=== PATIENT | female | born 2000 | race Two or more races ===

== ENCOUNTER 2019-04-10 22:44 | Outpatient (CLI) | payer OTHER ==
[2019-04-10 23:47] LABS: APPEARANCE,URINE CLOUDY; BILIRUBIN,URINE NEGATIVE (NEGATIVE); COLOR,URINE YELLOW; GLUCOSE, URINE NEGATIVE (NEGATIVE); KETONES,URINE NEGATIVE (NEGATIVE); LEUKOCYTE ESTERASE,URINE LARGE (NEGATIVE); NITRITE,URINE NEGATIVE (NEGATIVE); PROTEIN,URINE NEGATIVE (NEGATIVE)
[2019-04-11 00:11] LABS: URINE AMPHETAMINES SCREEN NEGATIVE; URINE BARBITURATES SCREEN NEGATIVE; URINE BENZODIAZEPINES SCREEN NEGATIVE; URINE COCAINE SCREEN NEGATIVE; URINE MARIJUANA (THC) SCREEN NEGATIVE; URINE METHADONE SCREEN NEGATIVE; URINE PHENCYCLIDINE SCREEN NEGATIVE
[2019-04-11] MEDS ORDERED: HYDROXYZINE PAMOATE 50 MG CAPSULE ONE (00:40)
--- NOTE | 2019-04-11 00:53 | Non Stress Test Report ---
Non Stress Test Datetime Report Generated by CPN: 04/11/2019 00:53 DEMOGRAPHIC EGA NST: 37.2 INDICATION Indication for Study: Ordered by Provider MONITORING Monitor Explained: Monitor Explained; Test Explained; Patient Verbalized Understanding Time on Monitor: 04/11/2019 23:07 Time off Monitor: 04/11/2019 00:41 NST Duration: -1346 NST INTERVENTIONS NST Interventions: PO Hydration Physician Notified NST: Dr. Jose BABY A: [id number] BABY A Contraction Frequency : 2-6 FHR Baseline : 115 Accelerations : 15X15 Decelerations : None Variability : Moderate 6-25bpm NST Review: Meets Criteria for Reactive NST NST Review and Verified By : Mandy Tracey RN NST Results: Reactive NST REPORT Report Trigger: Send Report
[2019-04-11] MEDS ORDERED: HYDROXYZINE PAMOATE 50 MG CAPSULE PO ONE (01:00)
== END 2019-04-11 00:55 | disposition home or self-care (01) ==
LOC: LC 22:44
PROVIDERS: ATTEND Obstetrics & Gynecology
PROC: 4A1HXCZ Monitoring of Products of Conception, Cardiac Rate, External Approach (ICD-10-PCS; principal; 2019-04-10)
DX: O47.1 False labor at or after 37 completed weeks of gestation (principal); Z3A.37 37 weeks gestation of pregnancy
CPT/HCPCS: 59025; 80307; 81005

== ENCOUNTER 2019-04-23 13:22 | Outpatient (CLI) | payer OTHER ==
[2019-04-23 14:10] LABS: APPEARANCE,URINE SLIGHTLY-CLOUDY; BILIRUBIN,URINE NEGATIVE (NEGATIVE); COLOR,URINE YELLOW; GLUCOSE, URINE NEGATIVE (NEGATIVE); KETONES,URINE NEGATIVE (NEGATIVE); LEUKOCYTE ESTERASE,URINE MODERATE (NEGATIVE); NITRITE,URINE NEGATIVE (NEGATIVE); PROTEIN,URINE NEGATIVE (NEGATIVE); URINE SPECIFIC GRAVITY 1.012
[2019-04-23 14:30] LABS: URINE AMPHETAMINES SCREEN NEGATIVE; URINE BARBITURATES SCREEN NEGATIVE; URINE BENZODIAZEPINES SCREEN NEGATIVE; URINE COCAINE SCREEN NEGATIVE; URINE MARIJUANA (THC) SCREEN NEGATIVE; URINE METHADONE SCREEN NEGATIVE; URINE PHENCYCLIDINE SCREEN NEGATIVE
--- NOTE | 2019-04-23 15:20 | Non Stress Test Report ---
Non Stress Test Datetime Report Generated by CPN: 04/23/2019 15:20 DEMOGRAPHIC EGA NST: 39.0 INDICATION Indication for Study: Other Indication for Study (NST) Other: lc MONITORING Monitor Explained: Monitor Explained; Test Explained; Patient Verbalized Understanding Time on Monitor: 04/23/2019 13:40 Time off Monitor: 04/23/2019 14:35 NST Duration: 55 NST INTERVENTIONS NST Interventions: PO Hydration; Reposition Patient Physician Notified NST: N Alanis COAL DELIVERER A: [id number] BABY A Movement : Present Contraction Frequency : irreg FHR Baseline : 140 Accelerations : 15X15 Decelerations : None Variability : Moderate 6-25bpm NST Review: Meets Criteria for Reactive NST NST Review and Verified By : ANAMIKA JAY RN NST Results: Reactive NST REPORT Report Trigger: Send Report
== END 2019-04-23 15:22 | disposition home or self-care (01) ==
LOC: LC 13:22
PROVIDERS: ATTEND Obstetrics & Gynecology
DX: O47.1 False labor at or after 37 completed weeks of gestation (principal); Z3A.39 39 weeks gestation of pregnancy
CPT/HCPCS: 59025; 80307; 81005; 84112

== ENCOUNTER 2019-04-23 17:44 | Inpatient (IN) | payer OTHER ==
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
[2019-04-23] MEDS ORDERED: RINGERS SOLUTION,LACTATED 1,000 ML IV PRN (17:52)
[2019-04-23] MEDS ORDERED: PROMETHAZINE HCL INJ 25 MG/1 ML VIAL IV ONE (17:53)
[2019-04-23] MEDS ORDERED: NALBUPHINE HCL INJ 10 MG/1 ML AMPULE INJ ONE (17:53)
[2019-04-23] MEDS ORDERED: PROMETHAZINE HCL INJ 25 MG/1 ML VIAL ONE (18:08)
[2019-04-23] MEDS ORDERED: NALBUPHINE HCL INJ 10 MG/1 ML AMPULE ONE (18:08)
[2019-04-23] MEDS ORDERED: OXYTOCIN/NORMAL SALINE 20 UNIT/1,000 ML RTUINJ ONE (19:27)
[2019-04-23] MEDS ORDERED: MISOPROSTOL 0.2 MG TABLET ONE (19:27)
[2019-04-23] MEDS ORDERED: LIDOCAINE 1% INJ-PF (10 MG/ML) 30 ML SDV ONE (19:27)
[2019-04-23 19:28] LABS: HEMATOCRIT 32.8 % (36.0-47.0); HEMOGLOBIN 10.3 g/dL (12.0-15.5); MEAN CORPUSCULAR HGB CONC 31.5 g/dL (32.0-36.0); MEAN CORPUSCULAR VOLUME 71 fl (80-97); PLATELET COUNT 268 10^3/uL (150-450); RED BLOOD COUNT 4.63 10^6/uL (3.72-5.28); WHITE BLOOD COUNT 16.9 10^3/uL (4.0-10.5)
[2019-04-23 19:49] LABS: MEAN CORPUSCULAR HEMOGLOBIN 22.4 pg (27.0-33.4); RED CELL DISTRIBUTION WIDTH 21.4 % (11.5-14.0)
[2019-04-23] MEDS ORDERED: AMPICILLIN SOD/SULBACTAM 3 GM VIAL ONE (23:39)
[2019-04-23] MEDS ORDERED: ACETAMINOPHEN 325 MG TABLET ONE (23:39)
[2019-04-23] MEDS ORDERED: AMPICILLIN SOD/SULBACTAM 3 GM VIAL IV SCH (23:45)
[2019-04-23] MEDS ORDERED: OXYTOCIN/NORMAL SALINE 20 UNIT/1,000 ML RTUINJ IV PRN (23:55)
[2019-04-23] MEDS ORDERED: PROMETHAZINE HCL 25 MG SUPP.RECT PR PRN (23:55)
[2019-04-23] MEDS ORDERED: ACETAMINOPHEN 650 MG SUPP.RECT PR PRN (23:55)
[2019-04-23] MEDS ORDERED: ACETAMINOPHEN WITH CODEINE #3 TABLET PO PRN ×2 (23:55)
[2019-04-23] MEDS ORDERED: GLYCERIN/WITCH HAZEL LEAF 1 EACH MED..WIPE TP PRN (23:55)
[2019-04-23] MEDS ORDERED: ZOLPIDEM TARTRATE 5 MG TABLET PO PRN (23:55)
[2019-04-23] MEDS ORDERED: PROMETHAZINE HCL 25 MG TABLET PO PRN (23:55)
[2019-04-23] MEDS ORDERED: PROMETHAZINE HCL INJ 25 MG/1 ML VIAL IV PRN (23:55)
[2019-04-23] MEDS ORDERED: DIPH/PERTUSS(ACELL)/TETANUS VAC/PF 0.5 ML SYR (>=10YO) IM PRN (23:55)
[2019-04-23] MEDS ORDERED: DIBUCAINE 1% OINTMENT 56 GM TP PRN (23:55)
[2019-04-23] MEDS ORDERED: NA PHOS,M-B/NA PHOS,DI-BA (ADULT) 133 ML ENEMA PR PRN (23:55)
[2019-04-23] MEDS ORDERED: PSEUDOEPHEDRINE HCL 30 MG TABLET PO PRN (23:55)
[2019-04-23] MEDS ORDERED: BENZOCAINE/MENTHOL AEROSOL SPRAY 56 ML TOP PRN (23:55)
[2019-04-23] MEDS ORDERED: MAGNESIUM HYDROXIDE SUSP 30 ML UDCUP PO PRN (23:55)
[2019-04-23] MEDS ORDERED: MEASLES,MUMPS&RUBELLA VACC/PF 0.5 ML VIAL SUBCUT PRN (23:55)
[2019-04-23] MEDS ORDERED: DIPHENHYDRAMINE HCL 25 MG CAPSULE PO PRN (23:55)
[2019-04-24] MEDS ORDERED: ACETAMINOPHEN 325 MG TABLET PO ONE (00:10)
[2019-04-24] MEDS ORDERED: AMPICILLIN SOD/SULBACTAM 3 GM VIAL IV ONE (00:10)
[2019-04-24] MEDS ORDERED: IBUPROFEN 800 MG TABLET ONE (01:04)
--- NOTE | 2019-04-24 01:39 | Delivery Summary ---
Del Sum A-C Datetime Report Generated by CPN: 04/24/2019 01:38 DELIVERY PERSONNEL DELIVERY PERSONNEL: [id number] Delivery Doctor:: Columba Garcia MD Labor and Delivery Nurse:: Darlene Tracey RNmetal fabrication supervisor Nurse:: KATHARINA Neri Well Driller/THERMODYNAMICIST: Eliza Mcfadden, ST MATERNAL INFORMATION Delivery Anesthesia: None Medications After Delivery: Cytotec 1000mcg Per Rectum/Vagina Estimated Blood Loss (ml): 400 Delivery QBL: 150 Maternal Complications: None Provider Comments: prolonged second stage of labor. no epidural, several attempts with kiwi to facilitate delivery due to maternal exhaustion were not successful due to inability to get adequate seal due to thick hair. LABOR SUMMARY EDC: 04/30/2019 00:00 No. Babies in Womb: 1 Attempted: No Labor Anesthesia: None LABOR INFORMATION Reason for Induction: Not Applicable Onset of Labor: 04/23/2019 17:30 Complete Dilatation: 04/23/2019 19:39 Oxytocin: N/A Group B Beta Strep: negative Antibiotics # of Doses: 0 Antibiotics Time of Last Dose: N/A Name of Antibiotic Given: N/A Steroids Given: None Reason Steroids Not Administered: Not Applicable MEMBRANES Membranes Rupture Method: Artificial Rupture of Membranes: 04/23/2019 19:39 Length of Rupture (hr): 27.90 Amniotic Fluid Color: Clear Amniotic Fluid Amount: Moderate Amniotic Fluid Odor: Normal STAGES OF LABOR Stage 1 hr: 2 Stage 1 min: 9 Stage 2 hr: 27 Stage 2 min: 54 Stage 3 hr: 0 Stage 3 min: 2 Total Time in Labor hr: 30 Total Time in Labor min: 5 VAGINAL DELIVERY Episiotomy: None Laceration #1: Vaginal Laceration Extension #1: First Degree Laceration Repair: Not Applicable Sponge Count Correct: Yes Sharps Count Correct: Yes CSECTION DELIVERY Primary Indication: N/A Secondary Indication: N/A CSection Incidence: N/A Labor: N/A Elective: N/A CSection Incision: N/A BABY A INFORMATION Infant Delivery Date/Time: 04/24/2019 23:33 Method of Delivery: Vaginal Born in Route : No : N/A Forceps: N/A Vacuum Extraction: Failed Shoulder Dystocia : No ASSISTED DELIVERY BABY A Indication for Assisted Delivery: FHT with prolonged second stage Catheter Prior to Procedure: Yes Station Vacuum/Forcep Apply: +2 Position Vacuum/Forcep Apply: Left Occipital Anterior Vacuum Number of Pulls: 3 Vacuum Number of PopOffs: 3 Vacuum Maximum Pressure Obtained: 500 Reduce Pressure btwn Ctx: Yes Vacuum Behavioral Services Tech: kiwi PRESENTATION/POSITION BABY A Presentation: Cephalic Cephalic Presentation: Vertex Vertex Position: Left Occipital Anterior Breech Presentation: N/A PLACENTA INFORMATION BABY A Placenta Delivery Time : 04/24/2019 23:35 Placenta Method of Delivery: Spontaneous Placenta Status: Delivered SCORES BABY A Heart Rate 1 min: >100 bpm Resp Effort 1 min: Slow, Irregular Reflex Irritability 1 min: [place] Muscle Tone 1 min: Some Flexion of Extremities Color 1 min: Body [place], Extremities Blue Resuscitation Effort 1 min: Tactile Stimulation SCORE 1 MIN: 6 Heart Rate 5 min: >100 bpm Resp Effort 5 min: Slow, Irregular Reflex Irritability 5 min: [place] Muscle Tone 5 min: Some Flexion of Extremities Color 5 min: Completely [place] Resuscitation Effort 5 min: Tactile Stimulation SCORE 5 MIN: 7 INFANT INFORMATION BABY A Gestational Age at Delivery: 39.0 Gestational Status: Full Term- 39- 40.6 Weeks Infant Outcome : Liveborn Condition : Stable Sex: Female IDENTIFICATION BABY A Verification Date/Time: 04/24/2019 00:09 ID Band Number: [id number] Mother's Name Verified: Yes Infant RN Verifying : ERajni Zhoukatya RN/ Al Ortega RN WEIGHT/LENGTH BABY A Infant Birthweight (gm): 3486 Weight (lb): 7 Infant Weight (oz): 11 Length (in): 20.50 Length (cm): 52.07 CORD INFORMATION BABY A No. Cord Vessels: 3 Nuchal Cord : N/A Cord Blood Taken: Yes-For Eval (Mom's Blood Type - or O+) Suction: Mouth; Nose BABY B INFORMATION : N/A SIGNATURES Signature: with User ID: [email or web address]
[2019-04-24] MEDS: FAMOTIDINE 20 MG TABLET PO SCH ×3 (02:17→21:15)
[2019-04-24] MEDS: IBUPROFEN 800 MG TABLET PO SCH ×3 (06:19→21:15)
[2019-04-24 06:58] LABS: HEMATOCRIT 27.7 % (36.0-47.0); HEMOGLOBIN 8.8 g/dL (12.0-15.5); MEAN CORPUSCULAR HEMOGLOBIN 22.5 pg (27.0-33.4); MEAN CORPUSCULAR HGB CONC 31.9 g/dL (32.0-36.0); MEAN CORPUSCULAR VOLUME 71 fl (80-97); PLATELET COUNT 244 10^3/uL (150-450); RED BLOOD COUNT 3.92 10^6/uL (3.72-5.28); RED CELL DISTRIBUTION WIDTH 21.8 % (11.5-14.0); WHITE BLOOD COUNT 24.1 10^3/uL (4.0-10.5)
[2019-04-24] MEDS: DOCUSATE SODIUM 100 MG CAPSULE PO SCH ×2 (09:44→17:28)
[2019-04-24] MEDS: FERROUS SULFATE 325 MG TABLET PO SCH ×2 (09:44→17:28)
[2019-04-24] MEDS: PRENATAL VITAMIN W DHA CAPSULE PO SCH (09:44)
[2019-04-24] MEDS: SENNOSIDES/DOCUSATE 8.6-50 MG 1 EACH TABLET PO SCH (09:44)
--- NOTE | 2019-04-24 12:05 | PDOC PROGRESS REPORT ---
Subjective-OB Progress Note for:: 04/24/19 Subjective: Doing well, no c/o, feeling better today, voiding, eating well, afebrile Physical Exam (OB) Vital Signs: Temp Pulse Resp BP Pulse Ox 98.8 F 64 16 110/55 L 97 04/24/19 07:33 04/24/19 07:33 04/24/19 07:33 04/24/19 07:33 04/24/19 07:33 Intake & Output 04/23/19 04/24/19 04/25/19 06:59 06:59 06:59 Intake Total 1000 Balance 1000 - PIH/Pre-Eclampsia Clonus: Negative Headache: Absent Epigastric Pain: No Visual Changes: No - Lochia Lochia Amount: Scant < 10 ml Lochia Color: Rubra/Red - Abdomen Description: Soft, Flat Hernia Present: No Fundal Description: Firm, Midline Fundal Height: u/u - u/2 Objective-Diagnostic Laboratory: 04/24/19 06:26 04/23/19 04/23/19 04/24/19 19:01 19:01 06:26 WBC 16.9 H 24.1 H RBC 4.63 3.92 Hgb 10.3 L 8.8 L Hct 32.8 L 27.7 L MCV 71 L 71 L MCH 22.4 L 22.5 L MCHC 31.5 L 31.9 L RDW 21.4 H 21.8 H Plt Count 268 244 Blood Type O POSITIVE Antibody Screen NEGATIVE Assessment and Plan(PN) - Assessment and Plan (1) Vaginal laceration Qualifiers: Perineal laceration degree: first degree Is this a current diagnosis for this admission?: Yes (2) Prolonged second stage of labor Is this a current diagnosis for this admission?: Yes (3) Vacuum-assisted vaginal delivery Is this a current diagnosis for this admission?: Yes - Time Spent with Patient Time with patient: Less than 15 minutes Medications reviewed and adjusted accordingly: Yes - Disposition Anticipated Discharge: Home Within: within 24 hours
[2019-04-24] MEDS ORDERED: ACETAMINOPHEN 325 MG TABLET ONE (18:46)
[2019-04-24] MEDS ORDERED: ACETAMINOPHEN 325 MG TABLET PO PRN (18:47)
[2019-04-25] MEDS: IBUPROFEN 800 MG TABLET PO SCH ×2 (05:19→13:39)
[2019-04-25 07:27] LABS: HEMATOCRIT 25.2 % (36.0-47.0); MEAN CORPUSCULAR HEMOGLOBIN 22.5 pg (27.0-33.4); MEAN CORPUSCULAR HGB CONC 31.2 g/dL (32.0-36.0); MEAN CORPUSCULAR VOLUME 72 fl (80-97); PLATELET COUNT 236 10^3/uL (150-450); RED CELL DISTRIBUTION WIDTH 24.1 % (11.5-14.0); WHITE BLOOD COUNT 13.9 10^3/uL (4.0-10.5)
[2019-04-25 07:37] LABS: HEMOGLOBIN 7.9 g/dL (12.0-15.5)
[2019-04-25] MEDS: SENNOSIDES/DOCUSATE 8.6-50 MG 1 EACH TABLET PO SCH (09:58)
[2019-04-25] MEDS: FERROUS SULFATE 325 MG TABLET PO SCH (09:58)
[2019-04-25] MEDS: FAMOTIDINE 20 MG TABLET PO SCH (09:58)
[2019-04-25] MEDS: DOCUSATE SODIUM 100 MG CAPSULE PO SCH (09:58)
[2019-04-25] MEDS: PRENATAL VITAMIN W DHA CAPSULE PO SCH (09:58)
[2019-04-25 10:04] VITALS: BP 106/70
--- NOTE | 2019-04-25 10:18 | PDOC DISCHARGE SUMMARY ---
Final Diagnosis Discharge Date: 04/25/19 - Final Diagnosis (1) Prolonged second stage of labor Is this a current diagnosis for this admission?: Yes (2) Vacuum-assisted vaginal delivery Is this a current diagnosis for this admission?: Yes (3) Vaginal laceration Is this a current diagnosis for this admission?: Yes Discharge Data - Discharge Medication Home Medications: 95/Iron Fum/Folic/Dha [ + Dha Combo Pack] 1 tab PO DAILY 04/11/19 Ferrous Sulfate [Iron] 1 tab PO BID 04/23/19 Reason(s) for Admission: Onset of Labor Procedures: NST Intrapartum Procedure(s): Spontaneous Vaginal Delivery Intrapartum Procedure Note: failed vacuum, pop off x 3 Complication(s): Laceration-Perineal Laceration-Degree: 1st - Diagnosis Test Laboratory: Temp Pulse Resp BP Pulse Ox 97.7 F 71 14 106/70 100 04/25/19 08:14 04/25/19 08:14 04/25/19 08:14 04/25/19 08:14 04/25/19 08:14 04/23/19 04/24/19 04/25/19 19:01 06:26 06:31 RBC 4.63 3.92 3.50 L Hgb 10.3 L 8.8 L 7.9 L Hct 32.8 L 27.7 L 25.2 L - Discharge information/Instructions Discharge Activity: Balance Activity w/Rest, Pelvic Rest Discharge Diet: Regular Disposition: HOME, SELF-CARE Follow up with: [facility] in: 4, Weeks
== END 2019-04-25 19:05 | disposition home or self-care (01) | DRG 807 ==
LOC: LC 17:44 → LR 17:49 → 2S 04-24 01:50
PROVIDERS: ADMIT Obstetrics & Gynecology; ATTEND Obstetrics & Gynecology
PROC: 10E0XZZ Delivery of Products of Conception, External Approach (ICD-10-PCS; principal; 2019-04-23)
PROC: 0HQ9XZZ Repair Perineum Skin, External Approach (ICD-10-PCS; 2019-04-23)
DX: O63.1 Prolonged second stage (of labor) (principal); Z37.0 Single live birth; O75.81 Maternal exhaustion complicating labor and delivery; O70.0 First degree perineal laceration during delivery; Z3A.39 39 weeks gestation of pregnancy; Z91.410 Personal history of adult physical and sexual abuse
CPT/HCPCS: 36415; 85027; 86592; 86850; 86900; 86901; 90715; J0295; J2300; J2550; J2590; J3490